=== PATIENT | female | born 1965 | race Caucasian/White ===

== ENCOUNTER 2016-07-08 22:55 | Emergency (ER) | payer OTHER ==
[~2016-07-08] VITALS: Ht 162.6 cm; Wt 90.9 kg
[~2016-07-08 22:55] MED LIST: CHOLESTEROL MED; INSULIN; METF500T4 PO
[2016-07-08 23:02] LABS: GLUCOSE,POINT OF CARE 328 MG/DL (70-110)
[2016-07-08] MEDS ORDERED: LEVO500 PO (23:02)
[2016-07-08] MEDS ORDERED: INSLAN SQ (23:02)
[2016-07-08] MEDS ORDERED: ONDANSETRON HCL 4 MG/2 ML VIAL IVP ONE ×2 (23:15→23:30)
[2016-07-08] MEDS ORDERED: MORPHINE SULFATE 4 MG/ML SYRINGE IVP ONE ×2 (23:15→23:30)
[2016-07-08] MEDS: LISINOPRIL 10 MG TABLET PO ONE ×2 (23:30→23:38)
[2016-07-09 00:09] LABS: BASOPHILS % (AUTO) 0.5 % (0.0-2.0); EOSINOPHILS % (AUTO) 1.8 % (1.0-6.0); HEMATOCRIT 48.4 % (36-46); LYMPHOCYTES # (AUTO) 2.4 K/uL (1.0-4.8); LYMPHOCYTES % (AUTO) 18.6 % (22.0-44.0); MEAN CORPUSCULAR HEMOGLOBIN 27.6 pg (26.0-34.0); MEAN CORPUSCULAR VOLUME 84 fL (80-100); MONOCYTES # (AUTO) 0.8 K/uL (0.1-1.0); MONOCYTES % (AUTO) 6.4 % (2.0-9.0); NEUTROPHILS # (AUTO) 9.3 K/uL (1.8-7.7); NEUTROPHILS % (AUTO) 72.7 % (40.0-70.0); PLATELET COUNT (AUTO) 227 K/uL (150-450); RED BLOOD CELL COUNT(AUTO) 5.79 MIL/uL (4.00-5.20); RED CELL DISTRIBUTION WIDTH 12.9 % (11.5-14.5); WHITE BLOOD COUNT (AUTO) 12.8 K/uL (4.5-11.0)
[2016-07-09 00:10] LABS: ANION GAP 12 mmol/L (8-16); CALCIUM, TOTAL 9.2 mg/dL (8.8-10.5); CARBON DIOXIDE 26 mmol/L (22-29); CHLORIDE 98 mmol/L (98-107); CREATININE 0.69 mg/dL (0.60-1.30); GLOMERULAR FILTR. RATE CALC > 60 mL/min (>60); POTASSIUM 3.4 mmol/L (3.5-5.1); SODIUM SERUM 136 mmol/L (136-145); UREA NITROGEN, BLOOD 18 mg/dL (7-18)
[2016-07-09 00:16] LABS: ALANINE AMINOTRANSFERASE 26 U/L (12-78); ALBUMIN 3.5 g/dL (3.4-5.0); ASPARTATE AMINOTRANSFERASE 15 U/L (15-37); BILIRUBIN,TOTAL 0.4 mg/dL (0.1-1.0); CREATINE KINASE, TOTAL 65 U/L (26-192); TOTAL PROTEIN, SERUM 7.7 g/dL (6.4-8.2)
[2016-07-09 00:48] LABS: B-TYPE NATRIURETIC PEPTIDE 9 pg/mL (0-100)
[2016-07-09] MEDS ORDERED: INSULIN REGULAR, HUMAN 100 UNITS/ML IVP ONE ×3 (01:30→07:45)
[2016-07-09] MEDS ORDERED: SODIUM CHLORIDE 0.9% 2,000 ML IV ONE (01:30)
[2016-07-09] MEDS ORDERED: HYDROmorphone 2 MG/ML SYRINGE IVP ONE (01:45)
[2016-07-09] MEDS ORDERED: ONDANSETRON HCL 4 MG/2 ML VIAL IVP ONE (01:45)
[2016-07-09 01:56] LABS: APPEARANCE,URINE CLEAR (CLEAR); GLUCOSE, URINE (UA) >=1000 mg/dL (NEGATIVE); KETONES,URINE TRACE mg/dL (NEGATIVE); LEUKOCYTE ESTERASE ,URINE NEGATIVE (NEGATIVE); OCCULT BLOOD,URINE NEGATIVE (NEGATIVE); PROTEIN,URINE TRACE (NEGATIVE)
[2016-07-09 01:58] LABS: ADD UA MICROSCOPIC YES
[2016-07-09 02:40] LABS: RBC,URINE None Seen /HPF (0-2)
[2016-07-09 02:41] LABS: SQUAMOUS EPITHELIAL CELL,UR Few /LPF (None Seen)
[2016-07-09 05:22] LABS: GLUCOSE,POINT OF CARE 387 MG/DL (70-110)
[2016-07-09] MEDS ORDERED: SODIUM CHLORIDE 0.9% 1,000 ML IV ONE (05:30)
[2016-07-09 06:17] LABS: GLUCOSE,POINT OF CARE 327 MG/DL (70-110)
[2016-07-09 07:37] LABS: GLUCOSE COMMENT 1 Doctor Notified; GLUCOSE,POINT OF CARE 336 MG/DL (70-110)
[2016-07-09 08:17] LABS: GLUCOSE,POINT OF CARE 358 MG/DL (70-110)
[2016-07-09] MEDS ORDERED: MetFORMIN HCL 500 MG TABLET PO ONE (08:30)
[2016-07-09 09:47] LABS: GLUCOSE,POINT OF CARE 350 MG/DL (70-110)
[2016-07-09 10:44] VITALS: BP 117/62
== END 2016-07-09 11:15 | disposition home or self-care (01) ==
LOC: EMS 22:56
DX: R19.7 Diarrhea, unspecified (principal); R10.9 Unspecified abdominal pain; E11.9 Type 2 diabetes mellitus without complications; F17.210 Nicotine dependence, cigarettes, uncomplicated
CPT/HCPCS: 36415; 71010; 74176; 80053; 81001; 82550; 82962; 83690; 83880; 84484; 85025; 87086; 93005; 96361; 96374; 96375; 96376; 99285; J1170; J1815; J2270; J2405 ×2; J7030

== ENCOUNTER 2018-03-12 02:16 | Emergency (ER) | payer SELFPAY ==
[~2018-03-12] VITALS: Ht 160 cm; Wt 90.0 kg
[~2018-03-12 02:16] MED LIST changes: -CHOLESTEROL MED; +INSLAN SQ; -INSULIN; +LEVO500 PO; +METF-444 PO; -METF500T4 PO
[2018-03-12] MEDS ORDERED: GLIP5TAB11 PO (02:32)
[2018-03-12] MEDS ORDERED: INSNOV SQ (02:32)
[2018-03-12] MEDS ORDERED: INSLAN SQ (02:32)
[2018-03-12 02:33] LABS: GLUCOSE,POINT OF CARE 346 MG/DL (70-110)
[2018-03-12 03:20] LABS: BASOPHILS % (AUTO) 1.2 % (0.0-2.0); EOSINOPHILS % (AUTO) 2.4 % (1.0-6.0); HEMATOCRIT 47.1 % (36-46); HEMOGLOBIN 16.4 g/dL (12.0-16.0); LYMPHOCYTES # (AUTO) 2.9 K/uL (1.0-4.8); LYMPHOCYTES % (AUTO) 41.7 % (22.0-44.0); MEAN CORPUSCULAR HEMOGLOBIN 29.3 pg (26.0-34.0); MEAN CORPUSCULAR HGB CONC 34.8 G/dL (31.0-37.0); MEAN CORPUSCULAR VOLUME 84 fL (80-100); MONOCYTES # (AUTO) 0.4 K/uL (0.1-1.0); MONOCYTES % (AUTO) 5.3 % (2.0-9.0); NEUTROPHILS # (AUTO) 3.5 K/uL (1.8-7.7); NEUTROPHILS % (AUTO) 49.4 % (40.0-70.0); PLATELET COUNT (AUTO) 210 K/uL (150-450); RED BLOOD CELL COUNT(AUTO) 5.59 MIL/uL (4.00-5.20); RED CELL DISTRIBUTION WIDTH 13.2 % (11.5-14.5)
[2018-03-12 03:22] LABS: ANION GAP 15 mmol/L (8-16); CALCIUM, TOTAL 8.8 mg/dL (8.8-10.5); CARBON DIOXIDE 24 mmol/L (22-29); CHLORIDE 96 mmol/L (98-107); CREATININE 0.73 mg/dL (0.60-1.30); GLOMERULAR FILTR. RATE CALC > 60 mL/min (>60); GLUCOSE,RANDOM 370 mg/dL (70-110); POTASSIUM 3.8 mmol/L (3.5-5.1); SODIUM SERUM 135 mmol/L (136-145); UREA NITROGEN, BLOOD 14 mg/dL (7-18)
[2018-03-12 03:27] LABS: ALANINE AMINOTRANSFERASE 25 U/L (12-78); ALBUMIN 3.4 g/dL (3.4-5.0); ALKALINE PHOSPHATASE 109 U/L (46-116); BILIRUBIN,TOTAL 0.3 mg/dL (0.1-1.0); TOTAL PROTEIN, SERUM 7.3 g/dL (6.4-8.2)
[2018-03-12 03:36] LABS: ASPARTATE AMINOTRANSFERASE 10 U/L (15-37)
[2018-03-12 03:44] LABS: GLUCOSE,POINT OF CARE 411 MG/DL (70-110)
[2018-03-12] MEDS ORDERED: ONDANSETRON HCL 4 MG/2 ML VIAL IVP ONE (04:30)
[2018-03-12] MEDS ORDERED: MECLIZINE HCL 25 MG TABLET PO ONE (04:30)
[2018-03-12] MEDS ORDERED: INSULIN REGULAR, HUMAN 100 UNITS/ML IVP ONE (04:30)
[2018-03-12] MEDS ORDERED: SODIUM CHLORIDE 0.9% 2,000 ML IV ONE (04:30)
[2018-03-12 05:04] LABS: APPEARANCE,URINE CLEAR (CLEAR); BILIRUBIN,URINE NEGATIVE (NEGATIVE); GLUCOSE, URINE (UA) >=1000 mg/dL (NEGATIVE); KETONES,URINE NEGATIVE (NEGATIVE); LEUKOCYTE ESTERASE ,URINE NEGATIVE (NEGATIVE); NITRATE,URINE NEGATIVE (NEGATIVE); OCCULT BLOOD,URINE NEGATIVE (NEGATIVE); PROTEIN,URINE NEGATIVE (NEGATIVE); UROBILINOGEN,URINE 0.2 mg/dL (<=1.0)
[2018-03-12 05:09] LABS: BACTERIA,URINE None Seen /HPF (None Seen); RBC,URINE None Seen /HPF (0-2); SQUAMOUS EPITHELIAL CELL,UR Rare /LPF (None Seen); WBC,URINE None Seen /HPF (0-5)
[2018-03-12 05:43] LABS: GLUCOSE,POINT OF CARE 296 MG/DL (70-110)
[2018-03-12 05:45] VITALS: BP 130/76
== END 2018-03-12 06:13 | disposition home or self-care (01) ==
LOC: EMS 02:17
DX: E11.65 Type 2 diabetes mellitus with hyperglycemia (principal); R42 Dizziness and giddiness; F17.210 Nicotine dependence, cigarettes, uncomplicated; Z79.4 Long term (current) use of insulin
CPT/HCPCS: 36415; 80053; 81001; 82962; 85025; 96361; 96374; 96375; 99406; 99283; J1815; J2405; J7030

== ENCOUNTER 2019-01-07 09:03 | Emergency (ER) | payer OTHER ==
[~2019-01-07] VITALS: Ht 170.2 cm; Wt 84.1 kg
[~2019-01-07 09:03] MED LIST changes: +GLIP5TAB11 PO; +INSNOV SQ; -LEVO500 PO
[2019-01-07] MEDS ORDERED: KETOROLAC TROMETHAMINE 60 MG/2 ML VIAL IM ONE (10:30)
[2019-01-07 10:40] LABS: GLUCOSE,POINT OF CARE 84 MG/DL (70-110)
[2019-01-07 11:34] LABS: BASOPHILS % (AUTO) 1.2 % (0.0-2.0); EOSINOPHILS % (AUTO) 2.2 % (1.0-6.0); HEMATOCRIT 44.1 % (36-46); LYMPHOCYTES # (AUTO) 3.6 K/uL (1.0-4.8); LYMPHOCYTES % (AUTO) 42.8 % (22.0-44.0); MEAN CORPUSCULAR HEMOGLOBIN 28.9 pg (26.0-34.0); MEAN CORPUSCULAR HGB CONC 34.1 G/dL (31.0-37.0); MEAN CORPUSCULAR VOLUME 85 fL (80-100); MONOCYTES # (AUTO) 0.6 K/uL (0.1-1.0); MONOCYTES % (AUTO) 6.8 % (2.0-9.0); PLATELET COUNT (AUTO) 226 K/uL (150-450); RED BLOOD CELL COUNT(AUTO) 5.19 MIL/uL (4.00-5.20); RED CELL DISTRIBUTION WIDTH 13.6 % (11.5-14.5)
[2019-01-07] MEDS ORDERED: LORazepam 2 MG/ML VIAL ONE (11:34)
[2019-01-07] MEDS ORDERED: DiphenhydrAMINE HCL 50 MG/ML VIAL ONE (11:34)
[2019-01-07 11:48] LABS: ANION GAP 10 mmol/L (8-16); CALCIUM, TOTAL 8.4 mg/dL (8.8-10.5); CARBON DIOXIDE 26 mmol/L (22-29); CHLORIDE 102 mmol/L (98-107); GLOMERULAR FILTR. RATE CALC > 60 mL/min (>60); GLUCOSE,RANDOM 81 mg/dL (70-110); POTASSIUM 3.8 mmol/L (3.5-5.1); SODIUM SERUM 138 mmol/L (136-145); UREA NITROGEN, BLOOD 9 mg/dL (7-18)
[2019-01-07 11:50] LABS: GLUCOSE,POINT OF CARE 75 MG/DL (70-110)
[2019-01-07 11:52] LABS: ALANINE AMINOTRANSFERASE 34 U/L (12-78); ALBUMIN 3.4 g/dL (3.4-5.0); ALKALINE PHOSPHATASE 88 U/L (46-116); ASPARTATE AMINOTRANSFERASE 24 U/L (15-37); BILIRUBIN,TOTAL 0.2 mg/dL (0.1-1.0); TOTAL PROTEIN, SERUM 7.1 g/dL (6.4-8.2)
[2019-01-07] MEDS ORDERED: OxyCODONE HCL/ACETAMINOPHEN 5-325 MG TABLET PO ONE (12:45)
[2019-01-07 13:48] VITALS: BP 112/62
== END 2019-01-07 14:01 | disposition home or self-care (01) ==
LOC: EMS 09:03
DX: M54.2 Cervicalgia (principal); J02.9 Acute pharyngitis, unspecified; E11.9 Type 2 diabetes mellitus without complications; F17.210 Nicotine dependence, cigarettes, uncomplicated; Z79.4 Long term (current) use of insulin
CPT/HCPCS: 36415; 70490; 80053; 82962; 85025; 96372; 99284; J1885; J1200; J2060